=== PATIENT | male | born 1970 | race Caucasian/White ===

== ENCOUNTER 2021-11-12 07:26 | Outpatient (CLI) | payer OTHER, SELFPAY ==
--- NOTE | 2021-11-26 16:09 | WPDSLEEPSTUD ---
Sleep Study Date of Study: 11/12/21 Ordering Provider: Zack Diallo APRN Interpreting Physician: Bárbara Crandall DO Sleep Study Type: Split Polysomnogram Height: 1.93 m Weight: 103.873 kg Body Mass Index: 27.8 Neck Circumference (inches): 17.5 [place]: 6 Reason for Sleep Study Loud snoring, witnessed apneas Sleep History The patient is a 51-year-old male that had a sleep study ordered by his primary care for evaluation of sleep apnea. the patient denies awakening from sleep short of breath. He denies awakening at night with heartburn, belching or cough. He constantly snores loud enough that others complain. He occasionally has trouble sleeping when he has a cold. He denies waking up gasping for air throughout the night. He occasionally has breathing problems at night observed by others. He denies sweating excessively at night. He denies having heart palpitations or irregular heartbeats during the night. He denies falling asleep during the day and while driving. He denies sleep paralysis, cataplexy and hypnagogic / hypnopompic hallucinations. He denies having trouble at school or work due to sleepiness. He denies having nightmares. He occasionally remembers his dreams. He frequently has thoughts racing through his mind. He denies feeling sad or depressed. He occasionally has anxiety. He frequently has muscular tension. He occasionally notices parts of his body jerk. He rarely kicks during the night. He occasionally has crawling and aching feelings in his legs as well as leg pain during the night. He denies grinding his teeth during sleep and awakening with morning jaw pain. He denies being bothered by pain during the day but is occasionally awakened by pain during the night. He occasionally wakes up feeling stiff in the morning. He occasionally wakes up with sore achy muscles. He rarely wakes up with pain in the neck, spine and other joints. He goes to bed at 11:00 p.m. on weekdays and between 10 30 and 11:00 p.m. on the weekends. It takes him 10 minutes to fall asleep. He wakes up 1-2 times throughout the night to use the restroom and get a drink. He can fall back asleep within 1-2 minutes. He wakes up at 5:30 a.m. on weekdays and 6:30 a.m. on weekends. He typically gets 6 and half to 7 hours of sleep per night. He will stay in bed for 5 minutes after waking up in the morning. He is currently living with his . He does not consume any caffeinated beverages within 2 hours of bedtime. He will engage in physical exercise before bedtime. He will read and watch television before falling asleep. He does not take naps in the afternoon or the evening. He will drink 44 oz of diet Coke per day. He will drink 116 oz beer per day. He denies tobacco and recreational drug use. [facility] Family History Family History Mother Patient's mother is in good health Father Patient's father is in good health Sibling Patient's brother is in good health Social History Social History Smoking status: Never smoker Alcohol intake: current Medications Home Medications Medication Instructions Recorded Confirmed Type No Home Medications 10/30/21 10/30/21 History Sleep Procedure This test was performed using the [employer] multiple channel system including EOG, EEG, submental EMG, EKG, nasal and oral airflow using thermistors and nasal pressure sensors, chest and abdominal belts for body position data, and pulse oximetry. Video monitoring was also performed. The study was scored using [facility] guidelines. Sleep Architecture Diagnostic: The patient had a total recording time of 182.9 minutes and total sleep time of 121.6 minutes. The sleep efficiency was 66.5%. Sleep latency was 10.3 minutes. The patient did not achieve REM sleep during this part of the study. The patient had 27 awakenings. The patient
[2021-11-26 16:28] VITALS: BMI 27.8
== END 2021-11-13 06:35 | disposition home or self-care (01) ==
LOC: ANHCSM 07:30
PROVIDERS: PCP Internal Medicine; Visit Provider Nurse Practitioner
DX: G47.31 Primary central sleep apnea (principal); R06.83 Snoring
CPT/HCPCS: 95811

== ENCOUNTER 2021-12-16 02:33 | Day surgery (SDC) | payer OTHER, SELFPAY ==
[2021-11-29 13:59] VITALS: BMI 27.3
[2021-12-16 09:09] VITALS: BP 102/70; PULSE 88; RESP 16; TEMP 36.3; O2SAT 99; BMI 26.9
[2021-12-16] MEDS: LACTATED RINGERS 1,000 ML 150 ML IV CONT (09:18)
--- NOTE | 2021-12-16 09:25 | P.CONGI_ITS ---
Assessment and Plan Assessment and plan (1) Screening for colon cancer: Code(s): Z12.11 - Encounter for screening for malignant neoplasm of colon Status: Acute Assessment and Plan: Patient presents for neoplasia screening colonoscopy. Appears to be at average risk for colon polyps. Further recommendations will be given after endoscopy. GI Consult Note Consult date/time: 12/16/21 09:25 HPI: Jason Judd is a 51 year old male Presents for screening colonoscopy. Patient's current weight appetite bowel movements are normal. He denies abdominal pain. He has had no bleeding. Family history is noncontributory. Patient presents today for neoplasia screening. Review of Systems Review of Systems: All systems reviewed & are unremarkable except as noted in HPI and below PMFSH Family History Family History Mother Patient's mother is in good health Father Patient's father is in good health Sibling Patient's brother is in good health Social History Social History Smoking status: Never smoker Alcohol intake: current Drinks per week: 5 Substance use: never Substance use type: does not use Living arrangements: with family Spiritual care concerns: No Meds Home Medications and Allergies Home Medications Medication Instructions Recorded Confirmed Type No Home Medications 11/29/21 12/16/21 History Allergies Allergy/AdvReac Type Severity Reaction Status Date / Time No Known Allergies Allergy Verified 12/16/21 09:08 Vital Signs Vital Signs - 24 hr 12/16/21 09:09 Temperature 97.3 F L Pulse Rate 88 Respiratory Rate 16 Blood Pressure 102/70 Pulse Oximetry 99 Exam Narrative: Physical exam reveals patient to be alert. Vital signs stable. HEENT exam is unremarkable. Patient is anicteric. Lungs are clear to ausc ultation and percussion. Heart is without murmur or extra sounds. Abdominal exam bowel sounds are present soft nontender with no organomegaly. Digital external rectal exam is normal.
--- NOTE | 2021-12-16 09:42 | WPDANESEPPF ---
Anes - Initial Pre Proc Eval Procedure: Operation Date: 12/16/21 10:00 Proposed Procedures p Screening Colonoscopy - Michael Chen MD Date/Time: 12/16/21 09:42 Surgeon: Michael Chen MD Pre Op Diagnosis: neoplasm screening Patient Data Age: 51 Gender: M Height: 1.93 m Weight: 100.2 kg Last Vital Signs Temp 97.3 F L 12/16/21 09:09 Pulse 88 12/16/21 09:09 Resp 16 12/16/21 09:09 BP 102/70 12/16/21 09:09 Pulse Ox 99 12/16/21 09:09 Allergies Allergy/AdvReac Type Severity Reaction Status Date / Time No Known Allergies Allergy Verified 12/16/21 09:08 Home Medications Medication Instructions Recorded Confirmed Type No Home Medications 11/29/21 12/16/21 History Patient hx anesthesia problems: none Family hx anesthesia problems: none Results Review: All pre-operative results and documents have been reviewed as part of the pre-operative evaluation. [facility] Family History Family History Mother Patient's mother is in good health Father Patient's father is in good health Sibling Patient's brother is in good health Social History Social History Smoking status: Never smoker Alcohol intake: current Drinks per week: 5 Substance use: never Substance use type: does not use Living arrangements: with family Spiritual care concerns: No Anes - Eval Final PreProcedure Day of Procedure 12/16/21 09:42 Patient weight: overweight Heart: regular rate and rhythm Lungs: clear to auscultation Airway: Mallampati scale class II Neurological: alert and oriented Last oral intake: >/= 8 hours ASA classification: II Emergent: no Anesthetic plan: proceed Anesthesia type and monitoring: general GIVS and standard monitoring Results Review: All pre-operative results and documents have been reviewed as part of the pre-operative evaluation. Informed Consent: The patient's anesthetic plan and its attendant risks and benefits were discussed with the patient/family/POA. Questions were solicited and answers provided to the satisfaction of the patient/family/POA.
[2021-12-16 10:23] VITALS: BP 110/61; PULSE 79; RESP 26; O2SAT 98
[2021-12-16 10:33] VITALS: BP 101/63; PULSE 76; RESP 26; O2SAT 97
[2021-12-16 10:43] VITALS: BP 119/71; PULSE 74; RESP 22; O2SAT 99
== END 2021-12-16 10:44 | disposition home or self-care (01) ==
PROVIDERS: PCP Internal Medicine; Visit Provider Internal Medicine Gastroenterology
PROC: 0DJD8ZZ Inspection of Lower Intestinal Tract, Via Natural or Artificial Opening Endoscopic (ICD-10-PCS; CPT 45378; principal; 2021-12-16 10:00)
DX: Z12.11 Encounter for screening for malignant neoplasm of colon (principal); K64.8 Other hemorrhoids; D12.3 Benign neoplasm of transverse colon; K63.5 Polyp of colon
CPT/HCPCS: 45385; 88305; J2704; J7120